=== PATIENT | male | born 1975 | race Hispanic/Latino ===

== ENCOUNTER 2016-09-20 09:23 | Emergency (ER) | payer OTHER ==
[~2016-09-20] VITALS: Ht 182.9 cm; Wt 217.7 kg
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
[2016-09-20] MEDS ORDERED: PANTOPRAZOLE SO40 M1 PO (09:50)
[2016-09-20] MEDS ORDERED: LOSARTAN POTASS50 M1 PO (09:50)
[2016-09-20] MEDS ORDERED: PERCOCET 7.5-31 EACH PO (09:50)
[2016-09-20] MEDS ORDERED: DULERA 100 MCG/13 GM INH (09:51)
[2016-09-20] MEDS ORDERED: METFORMIN HCL500 M3 PO (09:51)
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
[2016-09-20 11:17] VITALS: BP 103/50
[2016-09-20] MEDS ORDERED: CYCLOBENZAPRINE10 M1 PO (11:20)
== END 2016-09-20 11:27 ==
LOC: ERH 09:23
DX: S16.1XXA Strain of muscle, fascia and tendon at neck level, initial encounter (principal); S73.101A Unspecified sprain of right hip, initial encounter; S39.012A Strain of muscle, fascia and tendon of lower back, initial encounter; V43.52XA Car driver injured in collision with other type car in traffic accident, initial encounter; Y92.411 Interstate highway as the place of occurrence of the external cause
CPT/HCPCS: 96372